=== PATIENT | female | born 1975 | race African-American/Black ===

== ENCOUNTER 2016-07-21 09:42 | Emergency (ER) | payer MEDICAID ==
[~2016-07-21] VITALS: Ht 175.3 cm; Wt 75.0 kg
[~2016-07-21 09:42] MED LIST: CARV3.125 PO; LISI-363 PO
[2016-07-21 09:45] VITALS: BP 150/107; PULSE 90; RESP 20; TEMP 98.2; O2SAT 99
[2016-07-21] MEDS ORDERED: NAPR500 PO (10:30)
[2016-07-21] MEDS ORDERED: CLON0.1T PO (10:30)
[2016-07-21] MEDS ORDERED: METH2.5T PO (10:30)
[2016-07-21] MEDS ORDERED: LISI-515 PO (10:30)
[2016-07-21] MEDS ORDERED: DULO20 PO (10:30)
[2016-07-21] MEDS ORDERED: CARV3.125 PO (10:30)
--- NOTE | 2016-07-21 10:39 | PD ---
HPI Chief Complaint: Pain: Acute or Chronic Time Seen by Provider: 10:12 Travel History International Travel<30 days: No Contact w/Intl Traveler<30days: No Traveled to known affect area: No History of Present Illness HPI 40-year-old woman presents emergent [place] of left breast pain. States that she's had this left breast pain and tender lump ongoing for months. She was seen here and referred as outpatient for further evaluation. States she seen multiple doctors but has not been able to get any further evaluation. States she also has pain in the right breast. States she noticed discharge from the left nipple at some point in the past but states the son actually that uncommon for her. She has a history of multiple medical problems including lupus fibromyalgia rheumatoid arthritis COPD and hypertension. She feels like the pain is worse when she tries to eat something and she hasn't been able to eat because of worsening pain. History Past Medical History Narrative Medical Lupus Fibromyalgia Return arthritis, methotrexate COPD Hypertension Tetanus Vaccination: > 5 Years : 4 Para: 5 Dilation and Curettage (D&C): Yes Social History Alcohol Use: No Tobacco Use: No Allergies-Medications (Allergen,Severity, Reaction): Coded Allergies: Clindamycin (Verified Allergy, Severe, Cardiac Arrest, 07/21/16) Darvocet-N 100 (Verified Allergy, Severe, Itching, 07/21/16) Latex (Verified Allergy, Intermediate, RASH, 07/21/16) Penicillin (Verified Allergy, Intermediate, Anaphylaxis, 07/21/16) Reported Meds & Prescriptions Reported Meds & Active Scripts Active Reported Methotrexate 2.5 Mg Tab 2.5 Mg PO Q7D Naprosyn (Naproxen) 500 Mg Tab 500 Mg PO BID Cymbalta DR (Duloxetine HCl) 20 Mg Capdr 20 Mg PO DAILY Clonidine (Clonidine HCl) 0.1 Mg Tab 0.1 Mg PO BID Lisinopril 20 Mg Tab 20 Mg PO DAILY Coreg (Carvedilol) 3.125 Mg Tab 3.125 Mg PO BID Review of Systems Except as stated in HPI: all other systems reviewed are Neg Physical Exam Narrative GENERAL: 40-year-old woman, well-appearing, no acute distress. SKIN: Warm and dry. HEAD: Atraumatic. Normocephalic. CARDIOVASCULAR: Regular rate and rhythm. No murmur appreciated. RESPIRATORY: No accessory muscle use. Clear to auscultation. Breath sounds equal bilaterally. BREASTS: Normal appearance of both breasts. Pendulous. There is a little bit of firm fibrocystic changes in the base. There is a more discrete palpable lump at the 3 o'clock position the left breast. No abnormal lumps or bumps in the right breast. No discharge. No erythema redness or fluctuance changes. GASTROINTESTINAL: Abdomen soft, non-tender, nondistended. Hepatic and splenic margins not palpable. MUSCULOSKELETAL: No obvious deformities. No clubbing. No cyanosis. No edema. NEUROLOGICAL: Awake and alert. No obvious cranial nerve deficits. Motor grossly within normal limits. Normal speech. PSYCHIATRIC: Appropriate mood and affect; insight and judgment normal. Data Data Last Documented VS Vital Signs Date Time Temp Pulse Resp B/P Pulse Ox O2 Delivery O2 Flow Rate FiO2 07/21/16 09:45 98.2 90 20 150/107 99 Room Air MDM Medical Decision Making Medical Screen Exam Complete: Yes Emergency Medical Condition: Yes Differential Diagnosis Breast masses, fibrocystic changes breaths, fibromyalgia, chronic pain, other Narrative Course Medical decision-making 40-year-old woman with multiple milligrams here with several months worth of pain and tenderness in the lump in the left breast. Chest wall. Does not appear dehydrated. Does not appear emaciated. She has a primary care physician. She is having some trouble ranging except and follow-up with his left breast lump. We'll refer her to our breast navigator. Diagnosis Primary Impression: Left breast mass Additional Instructions: Follow-up with your primary physician at the first available appointment. Follow-up with our breast navigator to assist you with further evaluation of this left breast mass. Return to the emergency department for any new or worsening symptoms. Med/Other Pt SpecificInfo: No Change to Meds Disposition: 01 DISCHARGE HOME Condition: Stable Michael Giron MD Jul 21, 2016 10:39
[2016-08-08] MEDS ORDERED: AMIT10TA6 PO (10:11)
[2016-08-08] MEDS ORDERED: SPIRCAP INH (10:11)
[2016-08-08] MEDS ORDERED: MONT10TA2 PO (10:11)
[2016-08-08] MEDS ORDERED: SYMB80AE INH (10:11)
[2016-08-08] MEDS ORDERED: CYMB30CA PO (10:11)
[2016-08-08] MEDS ORDERED: CYMB60CA PO (10:11)
[2016-08-08] MEDS ORDERED: VENTAER INH (10:12)
[2016-08-10] MEDS ORDERED: SPIRCAP INH (16:08)
[2016-08-10] MEDS ORDERED: VENTAER INH (16:08)
[2016-08-10] MEDS ORDERED: CARV12.52 PO (16:08)
[2016-08-10] MEDS ORDERED: SYMB80AE INH (16:08)
[2016-08-10] MEDS ORDERED: LISI-515 PO (16:08)
[2016-08-10] MEDS ORDERED: AMIT10TA6 PO (16:08)
[2016-08-10] MEDS ORDERED: CYMB60CA PO (16:08)
[2016-09-05] MEDS ORDERED: CARV25TA PO (13:27)
[2016-09-24] MEDS ORDERED: CLON0.1T PO (08:48)
[2016-09-28] MEDS ORDERED: CYMB60CA PO (09:51)
[2016-09-28] MEDS ORDERED: CARV25TA PO (09:51)
[2016-09-28] MEDS ORDERED: LISI-515 PO (09:51)
== END 2016-07-21 10:58 | disposition home or self-care (01) ==
LOC: NEPE 09:42
DX: N63 Unspecified lump in breast (principal); M79.7 Fibromyalgia; M06.9 Rheumatoid arthritis, unspecified; J44.9 Chronic obstructive pulmonary disease, unspecified; I10 Essential (primary) hypertension
CPT/HCPCS: 99283

== ENCOUNTER 2017-11-26 07:51 | Emergency (ER) | payer MEDICAID ==
[~2017-11-26] VITALS: Ht 175.3 cm; Wt 60.0 kg
[~2017-11-26 07:51] MED LIST changes: +AMIT10TA6 PO; +CARV25TA PO; -CARV3.125 PO; +CLON0.1T PO; +CYMB30CA PO; +CYMB60CA PO; -LISI-363 PO; +LISI-515 PO; +METH2.5T PO; +MONT10TA2 PO; +NAPR500 PO; +SPIRCAP INH; +SYMB80AE INH; +VENTAER INH
[2017-11-26 08:02] VITALS: BP 137/77; PULSE 96; RESP 18; TEMP 98.7; O2SAT 98
[2017-11-26 08:10] VITALS: BP 183/106; PULSE 71; RESP 16; O2SAT 100
[2017-11-26] MEDS ORDERED: PRED5TAB PO (08:16)
[2017-11-26] MEDS ORDERED: ALBUAER3 INH (08:16)
[2017-11-26] MEDS ORDERED: amLODIPine BESYLATE 5 MG TAB PO ONE (08:30)
[2017-11-26] MEDS ORDERED: SODIUM CHLORIDE 0.9% FLUSH 10 ML FLUSH IVF PRN (08:30)
[2017-11-26 09:01] LABS: AUTOMATED NEUTROPHIL # 5.2 TH/MM3 (1.8-7.7); BASOPHIL # 0.1 TH/MM3 (0-0.2); BASOPHIL % 0.9 % (0.0-2.0); EOSINOPHIL # 0.1 TH/MM3 (0-0.4); EOSINOPHIL % 0.8 % (0.0-4.0); HEMATOCRIT 33.4 % (35.0-46.0); HEMOGLOBIN 11.4 GM/DL (11.6-15.3); LYMPH % 24.9 % (9.0-44.0); LYMPHOCYTE # 1.9 TH/MM3 (1.0-4.8); MEAN CELL VOLUME 89.9 FL (80.0-100.0); MEAN CORPUSCULAR HEMOGLOBIN 30.6 PG (27.0-34.0); MEAN PLATELET VOLUME 7.3 FL (7.0-11.0); MONO % 6.3 % (0.0-8.0); MONOCYTE # 0.5 TH/MM3 (0-0.9); NEUT % 67.1 % (16.0-70.0); PLATELET COUNT 256 TH/MM3 (150-450); RED BLOOD COUNT 3.72 MIL/MM3 (4.00-5.30); RED CELL DISTRIBUTION WIDTH 13.4 % (11.6-17.2); WHITE BLOOD COUNT 7.7 TH/MM3 (4.0-11.0)
--- NOTE | 2017-11-26 09:12 | RADRPT ---
EXAM DATE: 11/26/2017 9:02 AM EDT AGE/SEX: 42 years / Female INDICATIONS: Hypertension, no headache CLINICAL DATA: This is the patient's initial encounter. Patient reports that signs and symptoms have been present for 1 day and indicates a pain score of 0/10. MEDICAL/SURGICAL HISTORY: Hypertension. Lupus. Umbilical hernia repair. RADIATION DOSE: 56.35 CTDI (mGy) COMPARISON: No prior [place] exams available for comparison. TECHNIQUE: CT of the head without contrast. Using automated exposure control and adjustment of the mA and/or kV according to patient size, radiation dose was kept as low as reasonably achievable to ob tain optimal diagnostic quality images. FINDINGS: Cerebrum: The ventricles are normal. No midline shift, mass lesion, hemorrhage or acute infarction. No extraaxial fluid collections are seen. Posterior Fossa: The cerebellum and brainstem demonstrate no acute abnormality. The 4th ventricle is midline. The cerebellopontine angle is within normal limits. Extracranial: The visualized sinuses are clear. Skull: The calvaria is intact. No skull fracture. CONCLUSION: 1. No acute intracranial abnormality is identified. Electronically signed by: Ernesto Bernard MD 11/26/2017 9:11 AM EDT
[2017-11-26 09:27] LABS: ALBUMIN 3.4 GM/DL (3.4-5.0); AST (GOT) 13 U/L (15-37); BICARBONATE 27.5 MEQ/L (21.0-32.0); BLOOD UREA NITROGEN 9 MG/DL (7-18); CALCIUM 8.6 MG/DL (8.5-10.1); CHLORIDE 106 MEQ/L (98-107); GLOMERULAR FILTRATION RATE 132 ML/MIN (>89); GLUCOSE,RANDOM 81 MG/DL (74-106); SODIUM (NA) 141 MEQ/L (136-145)
[2017-11-26 09:29] LABS: ALT (GPT) 20 U/L (10-53)
[2017-11-26 09:32] LABS: ALKALINE PHOSPHATASE 48 U/L (45-117); TOTAL BILIRUBIN ADULT 0.7 MG/DL (0.2-1.0); TOTAL PROTEIN 6.7 GM/DL (6.4-8.2); TROPONIN I LESS THAN 0.02 NG/ML (0.02-0.05)
--- NOTE | 2017-11-26 09:36 | PD ---
HPI Chief Complaint: Hypertension Time Seen by Provider: 08:15 Travel History International Travel<30 days: No Contact w/Intl Traveler<30days: No Traveled to known affect area: No History of Present Illness HPI Is a 41-year-old woman presents emerged from complaining of facelift twitching and tingling starting yesterday. She is a history of lupus. She has had trouble with facial palsies in the past related to the lupus but this is been some time ago. No history of stroke. She is on methotrexate and prednisone. She states she was worried because she is a family history of stroke and heart disease, and her blood pressures been elevated in the 200 / 100 area. She is on Coreg and lisinopril. She was on clonidine in the past but she has not been on it recently. She otherwise is felt generally well. She has had some intermittent chest pain which she states is very common for her and unchanged from baseline. No other recent illness or injury. No other complaints. History Past Medical History Narrative Medical Lupus Hypertension Tetanus Vaccination: > 5 Years Influenza Vaccination: Yes LMP: 11/19/17 : 4 Para: 5 Dilation and Curettage (D&C): Yes Social History Alcohol Use: No Tobacco Use: No Allergies-Medications (Allergen,Severity, Reaction): Coded Allergies: acetaminophen (Verified Allergy, Severe, Itching, 11/26/17) clindamycin (Verified Allergy, Severe, Cardiac Arrest, 11/26/17) propoxyphene (Verified Allergy, Severe, Itching, 11/26/17) latex (Verified Allergy, Intermediate, RASH, 11/26/17) penicillin G (Verified Allergy, Intermediate, Anaphylaxis, 11/26/17) Reported Meds & Prescriptions Reported Meds & Active Scripts Active Carvedilol 25 Mg Tab 25 Mg PO BID Lisinopril 20 Mg Tab 20 Mg PO DAILY Clonidine (Clonidine HCl) 0.1 Mg Tab 0.1 Mg PO BID Symbicort Inh (Budesonide/Formoterol Fumarate) 80-4.5 Mcg/Act Aero 2 Puff INH Q12HR Spiriva Handihaler (Tiotropium Inh) 18 Mcg Cap 18 Mcg INH DAILY 1 capsule = 18 mcg Reported Prednisone 5 Mg Tab 5 Mg PO DAILY Proair Hfa 8.5 GM Inh (Albuterol Sulfate) 90 Mcg/Act Aer 1 Puff INH Q4H PRN 108 mcg/actuation Cymbalta DR (Duloxetine HCl) 30 Mg Capdr 30 Mg PO DAILY Methotrexate 2.5 Mg Tab 2.5 Mg PO Q7D Review of Systems Except as stated in HPI: all other systems reviewed are Neg Physical Exam Narrative GENERAL: Well-appearing 42-year-old woman, no acute distress. SKIN: Focused skin assessment warm/dry. HEAD: Atraumatic. Normocephalic. EYES: Pupils equal and round. No scleral icterus. No injection or drainage. ENT: No nasal bleeding or discharge. Mucous membranes pink and moist. NECK: Trachea midline. No JVD. CARDIOVASCULAR: Regular rate and rhythm. No murmur appreciated. RESPIRATORY: No accessory muscle use. Clear to auscultation. Breath sounds equal bilaterally. GASTROINTESTINAL: Abdomen soft, non-tender, nondistended. Hepatic and splenic margins not palpable. MUSCULOSKELETAL: No obvious deformities. No clubbing. No cyanosis. No edema. NEUROLOGICAL: Awake and alert. Cranial nerves II through XII are intact. Strength full and equal upper and lower extremity's. Normal speech. Normal heel to rodrigues. Normal finger to nose. She describes some subjective sensory changes in the left arm. No other complaints. PSYCHIATRIC: Appropriate mood and affect; insight and judgment normal. Data Data Last Documented VS Vital Signs Date Time Temp Pulse Resp B/P (MAP) Pulse Ox O2 Delivery O2 Flow Rate FiO2 11/26/17 08:10 71 16 183/106 (131) 100 Room Air 11/26/17 08:02 98.7 Orders Orders Electrocardiogram (11/26/17 ) Electrocardiogram (11/26/17 08:27) Complete Blood Count With Diff (11/26/17 08:27) Comprehensive Metabolic Panel (11/26/17 08:27) D-Dimer (11/26/17 08:27) Magnesium (Mg) (11/26/17 08:27) Troponin I (11/26/17 08:27) Iv Access Insert/Monitor (11/26/17 08:27) Sodium Chloride 0.9% Flush (Ns Flush) (11/26/17 08:30) Chest, Pa & Lat (11/26/17 08:27) Ct Brain W/O Iv Contrast(Rout) (11/26/17 ) Amlodipine (Norvasc) (11/26/17 08:30) Labs Laboratory Tests Test 11/26/17 08:30 White Blood Count 7.7 TH/MM3 Red Blood Count 3.72 MIL/MM3 Hemoglobin 11.4 GM/DL Hematocrit 33.4 % Mean Corpuscular Volume 89.9 FL Mean Corpuscular Hemoglobin 30.6 PG Mean Corpuscular Hemoglobin Concent 34.0 % Red Cell Distribution Width 13.4 % Platelet Count 256 TH/MM3 Mean Platelet Volume 7.3 FL Neutrophils (%) (Auto) 67.1 % Lymphocytes (%) (Auto) 24.9 % Monocytes (%) (Auto) 6.3 % Eosinophils (%) (Auto) 0.8 % Basophils (%) (Auto) 0.9 % Neutrophils # (Auto) 5.2 TH/MM3 Lymphocytes # (Auto) 1.9 TH/MM3 Monocytes # (Auto) 0.5 TH/MM3 Eosinophils # (Auto) 0.1 TH/MM3 Basophils # (Auto) 0.1 TH/MM3 CBC Comment DIFF FINAL Differential Comment D-Dimer Quantitative (PE/DVT) 0.43 MG/L FEU Blood Urea Nitrogen 9 MG/DL Creatinine 0.60 MG/DL Random Glucose 81 MG/DL Total Protein 6.7 GM/DL Albumin 3.4 GM/DL Calcium Level 8.6 MG/DL Magnesium Level 2.0 MG/DL Alkaline Phosphatase 48 U/L Aspartate Amino Transf (AST/SGOT) 13 U/L Alanine Aminotransferase (ALT/SGPT) 20 U/L Total Bilirubin 0.7 MG/DL Sodium Level 141 MEQ/L Potassium Level 3.3 MEQ/L Chloride Level 106 MEQ/L Carbon Dioxide Level 27.5 MEQ/L Anion Gap 8 MEQ/L Estimat Glomerular Filtration Rate 132 ML/MIN Troponin I LESS THAN 0.02 NG/ML [facility] Medical Decision Making Medical Screen Exam Complete: Yes Emergency Medical Condition: Yes Interpretation(s) My review of EKG: Normal sinus rhythm at a rate of 72, normal axis, normal intervals, no acute ischemia. LABS: CBC is remarkable for mild anemia. CMP is unremarkable. Troponin negative. D-dimer 0.[address] negative Chest x-ray negative Differential Diagnosis Facial spasms, electrolyte abnormality, seizure, CVA, stroke, other Narrative Course Medical decision making Is a 42-year-old woman who presents to the emergency department with facial twitching elevated blood pressure. Positive symptoms with facial twitching very unlikely to represent stroke. She looks well. Will check labs. Will recommend tighter control blood pressure. Will restart amlodipine. Likely discharge for outpatient follow-up. Diagnosis Primary Impression: Facial twitching Additional Impression: Elevated blood pressure reading Additional Instructions: Start amlodipine as prescribed. Follow-up with your primary doctor in the next 1-2 days. Return to the emergency part for any worsening numbness tingling weakness or any other new or worsening symptoms. Med/Other Pt SpecificInfo: Prescription(s) given Scripts Amlodipine (Amlodipine) 5 Mg Tab 5 MG PO DAILY for Blood Pressure Management, #30 TAB 0 Refills Prov: Michael Giron MD 11/26/17 Disposition: DISCHARGE HOME Condition: Stable Michael Giron MD November 26, 2017 09:36
--- NOTE | 2017-11-26 10:04 | RADRPT ---
EXAM DATE: 11/26/2017 9:47 AM EDT AGE/SEX: 42 years / Female INDICATIONS: Chest tightness and short of breath. CLINICAL DATA: This is the patient's initial encounter. Patient reports that signs and symptoms have been present for 1 day and indicates a pain score of 0/10. MEDICAL/SURGICAL HISTORY: Hypertension. Chronic obstructive pulmonary disease. Lupus. A-fib. Fibromyalgia. Rheumatoid arthritis. Lyme's disease. section. Cholecystectomy. D&C. Bilate ral feet. COMPARISON: No prior [place] exams available for comparison. FINDINGS: PA and lateral views of the chest demonstrate the lungs to be symmetrically aerated without evidence of mass, infiltrate or effusion. The cardiomediastinal contours are unremarkable. Osseous structures are intact. CONCLUSION: 1. No acute cardiopulmonary disease. Electronically signed by: Wayne Felipe MD 11/26/2017 10:03 AM EDT
[2017-11-26] MEDS ORDERED: AMLO5TAB2 PO (10:19)
[2017-11-26 10:23] VITALS: BP 148/87
[2017-11-26] MEDS ORDERED: LISI-515 PO (10:24)
[2017-11-26] MEDS ORDERED: CARV25TA PO (10:24)
--- NOTE | 2017-11-26 13:59 | EKG ---
Date Performed: 11/26/2017 Time Performed: 08:28:17 PTAGE: 42 years EKG: Sinus rhythm WITH SINUS ARRHYTHMIA NORMAL ECG NO PREVIOUS TRACING DOCTOR: Joaquín Stephens Interpretating Date/Time 11/29/2017 07:47:33
== END 2017-11-26 10:38 | disposition home or self-care (01) ==
LOC: NEPC 07:51
DX: R25.3 Fasciculation (principal); I10 Essential (primary) hypertension; M32.9 Systemic lupus erythematosus, unspecified; R07.89 Other chest pain
CPT/HCPCS: 70450; 71046; 80053; 83735; 84484; 85025; 85379; 93005

== ENCOUNTER 2018-01-01 16:32 | Observation (INO) ==
--- NOTE | 2018-01-01 16:50 | ED ---
HPI General Chief Complaint: Seizure Stated Complaint: Seizures/Evac Time Seen by Provider: 01/01/18 16:44 History of Present Illness HPI Narrative: Patient has a history of lupus and fibromyalgia presents complaining of seizure. States that her 2 children have seizures. Patient was at a [facility] and had a witnessed grand mal seizure, tonic-clonic seizure, per EMS bystanders stated that she was seizing for approximately 15 minutes. There was no history of fall or incontinence. Per EMS Accu-Chek and 12-lead were within normal limits. Patient states that she has a history of "passing out a lot." When EMSs arrival she was postictal. Patient states that she may have had a history of seizures last seizure being in 1995. Leave that he induces the symptoms. Frontal headache, an episode of nausea vomiting but could not determine if she vomited before the reported seizure. She denies fever, chills , shortness of breath, but reports chest pain described as sternal/constant/ nonradiating/5 minutes duration/no pain now. She is also reporting numbness and tingling in her fingers and her toes. Last menstrual period is now. She's s /p tubal ligation. Related Data Home Medications Medication Instructions Recorded Confirmed albuterol sulfate [ProAir HFA] 1 puff INHALATION Q4-6H PRN 01/01/18 01/01/18 budesonide-formoterol [Symbicort] 2 puff INHALATION BID 01/01/18 01/01/18 carvedilol 25 mg PO BID 01/01/18 01/01/18 duloxetine [Cymbalta] 30 mg PO DAILY 01/01/18 01/01/18 lisinopril 20 mg PO DAILY 01/01/18 01/01/18 methotrexate sodium See Label Instructions .ROUTE 01/01/18 01/01/18 .COMPLEX prednisone 5 mg PO DAILY 01/01/18 01/01/18 prednisone PO DAILY 01/01/18 01/01/18 tiotropium bromide [Spiriva with 1 cap INHALATION DAILY 01/01/18 01/01/18 HandiHaler] Allergies Allergy/AdvReac Type Severity Reaction Status Date / Time acetaminophen Allergy Severe Itching Verified 12/26/17 08:48 clindamycin Allergy Severe Cardiac Verified 12/26/17 08:48 Arrest propoxyphene Allergy Severe Itching Verified 12/26/17 08:48 latex Allergy Intermediate RASH Verified 12/26/17 08:48 penicillin G Allergy Intermediate Anaphylaxis Verified 12/26/17 08:48 Review of Systems ROS Unobtainable All other systems reviewed negative except as stated in HPI [facility] Medical History Medical History Hypertension (Acute) Hypertension (Acute) Social History Social History Second Hand Smoke Exposure: No Smoking Status: Current some day smoker Tobacco Type: Cigars How Often Do You Have a Drink Containing Alcohol: Monthly or less Recent Travel in [facility] within the Last 8 Weeks: No Recent Out of Country Travel within the Last 8 Weeks: No Exam Narrative Exam Narrative: GENERAL: No acute distress. SKIN: Focused skin assessment warm/dry. HEAD: Atraumatic. Normocephalic. EYES: Pupils equal and round. No scleral icterus. No injection or drainage. ENT: No nasal bleeding or discharge. Mucous membranes pink and moist. NECK: Trachea midline. No JVD. CARDIOVASCULAR: Regular rate and rhythm. No murmur appreciated. RESPIRATORY: No accessory muscle use. Clear to auscultation. Breath sounds equal bilaterally. GASTROINTESTINAL: Abdomen soft, non-tender, nondistended. Hepatic and splenic margins not palpable. MUSCULOSKELETAL: No obvious deformities. No clubbing. No cyanosis. No edema. NEUROLOGICAL: Awake and alert. No obvious cranial nerve deficits. Bilateral upper extremity 3/5. Normal speech. PSYCHIATRIC: Appropriate mood and affect; insight and judgment normal. Course Initial Documented Vital Signs Temperature 97.4 F L 01/01/18 16:44 Pulse Rate 74 01/01/18 16:44 Respiratory Rate 18 01/01/18 16:44 Blood Pressure 128/89 01/01/18 16:44 Pulse Oximetry 100 01/01/18 16:44 Last Documented Vital Signs Temperature 97.4 F L 01/01/18 17:21 Pulse Rate 74 01/01/18 17:21 Respiratory Rate 18 01/01/18 17:21 Blood Pressure 128/89 01/01/18 17:21 Pulse Oximetry 100 01/01/18 17:21 Medical Decision Making MDM Narrative Medical decision making narrative: Patient presents to the emergency department secondary to seizure activity. Patient placed on a insulator apprentice, continuous pulse ox, and IV access obtained. Head CT/EKG/labs/chest x-ray ordered. 1L IV NS ordered. Head CT: CONCLUSION:1. No acute intracranial abnormalities. No significant change from November 26. Retention cyst right maxillary sinus. CXR: CONCLUSION: No focal consolidation or effusion. Heart size within normal limits. Labs: Decreased hemoglobin and hematocrit, slight increase in creatinine. UA, UDS, UPT pending at time of admit, admit MD to follow. 1849: Spoke to Dr. Mancia, neuro mortuary operations manager. Advised admit to obs, place neuro consult, MRI brain w/wo, drug screen, EEG, keppra 500mg po BID. Ordered keppra, neuro consult, and UDS in ER. Admit MD to place other orders. 1955: Admitted to Observation. Differential Diagnosis Differential Diagnosis: Seizure, TIA, CVA, intracranial mass, lupus Lab Data Result diagrams: 01/01/18 15:15 01/01/18 15:15 Lab Results 01/01/18 01/01/18 01/01/18 Range/Units 15:15 15:15 15:15 WBC 8.9 (4.0-11.0) th/mm3 RBC 3.54 L (4.00-5.30) mil/mm3 Hgb 10.7 L (11.6-15.3) gm/dL Hct 32.0 L (35.0-46.0) % MCV 90.4 (80.0-100.0) fL MCH 30.3 (27.0-34.0) pg MCHC 33.5 (32.0-36.0) % RDW 14.7 (11.6-17.2) % Plt Count 240 (150-450) th/mm3 MPV 8.5 (7.0-11.0) fL Neut % (Auto) 57.5 (16.0-70.0) % Lymph % (Auto) 32.5 (9.0-44.0) % [place] % (Auto) 7.5 (0.0-8.0) % Eos % (Auto) 1.4 (0.0-4.0) % Baso % (Auto) 1.1 (0.0-2.0) % Neut # (Auto) 5.1 (1.8-7.7) th/mm3 Lymph # (Auto) 2.9 (1.0-4.8) th/mm3 [place] # (Auto) 0.7 (0.0-0.9) th/mm3 Eos # (Auto) 0.1 (0.0-0.4) th/mm3 Baso # (Auto) 0.1 (0.0-0.2) th/mm3 WBC Differential . Differential Comment Auto diff final Sodium 143 (136-145) meq/L Potassium 4.4 (3.5-5.1) meq/L Chloride 109 H (98-107) meq/L Carbon Dioxide 22.6 (21.0-32.0) meq/L Anion Gap 11 (5-15) meq/L BUN 12 (7-18) mg/dL Creatinine 1.10 H (0.50-1.00) mg/dL Estimated GFR 66 L (>89) mL/min Random Glucose 73 L (74-106) mg/dL Calcium 8.9 (8.5-10.1) mg/dL Magnesium 2.5 (1.5-2.5) mg/dL Total Bilirubin 0.6 (0.2-1.0) mg/dL AST 34 (15-37) U/L ALT 43 (10-53) U/L Alkaline Phosphatase 50 (45-117) U/L Total Creatine Kinase (26-192) U/L CK-MB (CK-2) (0.5-3.6) ng/mL Troponin I (0.02-0.05) ng/mL Total Protein 7.0 (6.4-8.2) g/dL Albumin 3.5 (3.4-5.0) g/dL 01/01/18 Range/Units 15:15 WBC (4.0-11.0) th/mm3 RBC (4.00-5.30) mil/mm3 Hgb (11.6-15.3) gm/dL Hct (35.0-46.0) % MCV (80.0-100.0) fL MCH (27.0-34.0) pg MCHC (32.0-36.0) % RDW (11.6-17.2) % Plt Count (150-450) th/mm3 MPV (7.0-11.0) fL Neut % (Auto) (16.0-70.0) % Lymph % (Auto) (9.0-44.0) % [place] % (Auto) (0.0-8.0) % Eos % (Auto) (0.0-4.0) % Baso % (Auto) (0.0-2.0) % Neut # (Auto) (1.8-7.7) th/mm3 Lymph # (Auto) (1.0-4.8) th/mm3 [place] # (Auto) (0.0-0.9) th/mm3 Eos # (Auto) (0.0-0.4) th/mm3 Baso # (Auto) (0.0-0.2) th/mm3 WBC Differential Differential Comment Sodium (136-145) meq/L Potassium (3.5-5.1) meq/L Chloride (98-107) meq/L Carbon Dioxide (21.0-32.0) meq/L Anion Gap (5-15) meq/L BUN (7-18) mg/dL Creatinine (0.50-1.00) mg/dL Estimated GFR (>89) mL/min Random Glucose (74-106) mg/dL Calcium (8.5-10.1) mg/dL Magnesium (1.5-2.5) mg/dL Total Bilirubin (0.2-1.0) mg/dL AST (15-37) U/L ALT (10-53) U/L Alkaline Phosphatase (45-117) U/L Total Creatine Kinase 112 (26-192) U/L CK-MB (CK-2) Less than 0.5 L (0.5-3.6) ng/mL Troponin I Less than 0.02 L (0.02-0.05) ng/mL Total Protein (6.4-8.2) g/dL Albumin (3.4-5.0) g/dL Imaging Data Radiologist's impression: ITS Impressions Head CT 01/01/18 16:44 CONCLUSION: 1. No acute intracranial abnormalities. No significant change from November 26. Retention cyst right maxillary sinus. Chest X-Ray 01/01/18 16:47 CONCLUSION: No focal consolidation or effusion. Heart size within normal limits. Discharge Plan Discharge Disposition Patient Disposition: 30 Still Patient Discharge Condition Condition: Stable Discharge Details Discharge Problem: Seizures Physicians Team ED Provider: Dominga Shankar Primary Care Provider: Primary Care Cecei,Chica Attending Provider: Wagner Martin Other Providers: Brett Castellanos Status ED Status: Admitted Observation Patient
--- NOTE | 2018-01-01 17:11 | XR ---
EXAM DATE: 01/01/2018 5:08 PM EDT AGE/SEX: 42 years / Female INDICATIONS: Syncope, seizures. CLINICAL DATA: This is the patient's initial encounter. Patient reports that signs and symptoms have been present for 1 day and indicates a pain score of 0/10. MEDICAL/SURGICAL HISTORY: Hypertension. Chronic obstructive pulmonary disease. Lupus. A-fib. Fi bromyalgia. Rheumatoid arthritis. Lyme' s disease. . section. Cholecystectomy. D&C. Bilate ral feet. COMPARISON: [facility] [place], CHEST PA & LAT, 11/26/2017. . FINDINGS: A single AP view of the chest demonstrates the lungs to be symmetrically aerated without evidence of mass, infiltrate or effusion. The cardiomediastinal contours are unremarkable. Osseous structures a re intact. CONCLUSION: No focal consolidation or effusion. Heart size within normal limits. Electronically signed by: Saroj Chung MD 01/01/2018 5:10 PM EDT
[2018-01-01 17:53] LABS: Baso # (Auto) 0.1 th/mm3 (0.0-0.2); Baso % (Auto) 1.1 % (0.0-2.0); Eos # (Auto) 0.1 th/mm3 (0.0-0.4); Eos % (Auto) 1.4 % (0.0-4.0); Hemoglobin 10.7 gm/dL (11.6-15.3); Lymph # (Auto) 2.9 th/mm3 (1.0-4.8); Lymph % (Auto) 32.5 % (9.0-44.0); Mean Corpuscular HGB Conc 33.5 % (32.0-36.0); Mean Corpuscular Hemoglobin 30.3 pg (27.0-34.0); Mean Corpuscular Volume 90.4 fL (80.0-100.0); Mean Platelet Volume 8.5 fL (7.0-11.0); Mono # (Auto) 0.7 th/mm3 (0.0-0.9); Mono % (Auto) 7.5 % (0.0-8.0); Neut # (Auto) 5.1 th/mm3 (1.8-7.7); Neut % (Auto) 57.5 % (16.0-70.0); Platelet Count 240 th/mm3 (150-450); Red Blood Count 3.54 mil/mm3 (4.00-5.30); Red Cell Distribution Width 14.7 % (11.6-17.2); White Blood Count 8.9 th/mm3 (4.0-11.0)
[2018-01-01] MEDS ORDERED: Sod Chloride 0.9% Inj 1,000 ML IV.SIG ONE (18:11)
[2018-01-01 18:26] LABS: Alanine Aminotransferase 43 U/L (10-53)
[2018-01-01 18:29] LABS: Alkaline Phosphatase 50 U/L (45-117)
[2018-01-01 18:44] LABS: Albumin 3.5 g/dL (3.4-5.0); Anion Gap 11 meq/L (5-15); Aspartate Aminotransferase 34 U/L (15-37); Blood Urea Nitrogen 12 mg/dL (7-18); Calcium 8.9 mg/dL (8.5-10.1); Carbon Dioxide 22.6 meq/L (21.0-32.0); Chloride 109 meq/L (98-107); Glomerular Filtration Rate 66 mL/min (>89); Glucose,Random 73 mg/dL (74-106); Sodium 143 meq/L (136-145)
[2018-01-01 18:52] LABS: Creatine Kinase 112 U/L (26-192)
[2018-01-01 18:53] LABS: Potassium 4.4 meq/L (3.5-5.1)
[2018-01-01] MEDS ORDERED: levETIRAcetam 500 MG Tablet PO ONE (19:01)
[2018-01-01] MEDS ORDERED: Gadodiamide PF Inj 287 MG/ML 5 ML Syringe (for RAD MRI) IVCONTRAST ONE (19:56)
[2018-01-01] MEDS: Sod Chloride 0.9% Inj 1,000 ML IV.CONT SCH (20:30)
--- NOTE | 2018-01-01 21:49 | MR ---
EXAM DATE: 01/01/2018 9:38 PM EDT AGE/SEX: 42 years / Female INDICATIONS: Epilepsy. CLINICAL DATA: This is the patient's initial encounter. Patient reports that signs and symptoms have been present for 1 day and indicates a pain score of 4/10. MEDICAL/SURGICAL HISTORY: Lupus. Chronic obstructive pulmonary disease. Seizure, HBP. Cholecy stectomy. Rt foot sx, COMPARISON: No prior exams available for comparison. TECHNIQUE: Multiplanar, multisequence examination of the brain was performed without and with 12 ml O mniscan (gadodiamide) contrast as a single exam dose. FINDINGS: No intracranial mass, hemorrhage or shift. No hydrocephalus. No abnormal extra-axial fluid collection s are present. No recent infarction identified. Retention cyst right maxillary sinus. Mucosal thicken ing and fluid in the mastoid air cells, left greater than right. CONCLUSION: 1. No acute findings. No recent infarct. Mastoid air cell disease, left greater than right. Retentio n cyst right maxillary sinus. Electronically signed by: Saroj Chung MD 01/01/2018 9:48 PM EDT
[2018-01-01 22:02] LABS: Amphetamine Screen,Urine Neg (Neg); Barbiturate Screen,Urine Neg (Neg); Cannabinoid Screen,Urine Pos (Neg); Cocaine Screen,Urine Neg (Neg); Opiate Screen,Urine Neg (Neg)
[2018-01-01 22:03] LABS: Bacteria,Urine Occasional /hpf; Bilirubin,Urine Negative (Negative); Clarity,Urine Hazy (Clear); Color,Urine Yellow (Yellw/Straw); Glucose,Urine (UA) Negative (Negative); Hyaline Casts,Urine 17 /lpf (0-3); Leukocyte Esterase,Urine Moderate (Negative); Mucus,Urine Many /lpf (Occasional); Nitrite,Urine Negative (Negative); Specific Gravity,Urine 1.027 (1.002-1.035); Squamous Epithelial Cell,Urine 2 /hpf (0-5)
[2018-01-02] MEDS: levETIRAcetam 500 MG Tablet PO SCH ×2 (08:19→20:57)
[2018-01-02] MEDS: Sod Chloride 0.9% Inj 1,000 ML IV.CONT SCH ×2 (08:20→21:45)
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
[2018-01-02] MEDS ORDERED: Gadodiamide PF Inj 287 MG/ML 20 ML Syringe (for RAD MRI) IVCONTRAST ONE (12:59)
--- NOTE | 2018-01-02 13:17 | MR ---
EXAM DATE: 01/02/2018 1:12 PM EDT AGE/SEX: 42 years / Female INDICATIONS: Dizziness. CLINICAL DATA: This is the patient's subsequent encounter. Patient reports that signs and symptoms h ave been present for 2 days and indicates a pain score of 0/10. MEDICAL/SURGICAL HISTORY: Lupus. Hypertension. COPD section. Cholecystectomy. COMPARISON: No prior exams available for comparison. TECHNIQUE: 20 ml Omniscan (gadodiamide) contrast infused MRA (single exam dose) of the extracranial circulation was performed using a neurovascular coil. Postprocessing was performed, including rotat ing sub-volume maximum intensity projections of each carotid artery, rotating full-volume maximum int ensity projections of both carotid arteries, sagittal and coronal sliding thin-slab reformations of e ach carotid artery, and left oblique sliding thin-slab reformation through the aortic arch to include the origin of the arch branch vessels. FINDINGS: Aortic Arch : There is a two-vessel origin of the great vessels from the aorta. The left common car otid artery and innominate arteries have a common trunk. No evidence of ostial narrowing. Right Carotid : The common carotid artery is intact. The carotid bulb has a normal configuration wi thout ulceration or narrowing. The internal carotid artery lumen is smooth without stenosis. The ex ternal carotid artery is intact. Left Carotid : The common carotid artery is intact. The carotid bulb has a normal configuration wit hout ulceration or narrowing. The internal carotid artery lumen is smooth without stenosis. The ext ernal carotid artery is intact. Vertebrals : The vertebral arteries have a symmetric diameter. No stenotic lesions are seen. CONCLUSION: Negative MRA Carotids. Percent stenosis is calculated using the diameter of the stenotic region over the diameter of the nor mal distal internal carotid artery Electronically signed by: Darius Torres MD 01/02/2018 1:15 PM EDT
--- NOTE | 2018-01-02 13:18 | MR ---
EXAM DATE: 01/02/2018 1:11 PM EDT AGE/SEX: 42 years / Female INDICATIONS: Dizziness. CLINICAL DATA: This is the patient's subsequent encounter. Patient reports that signs and symptoms h ave been present for 2 days and indicates a pain score of 0/10. MEDICAL/SURGICAL HISTORY: Hypertension. Chronic obstructive pulmonary disease. Lupus. Cesarea n section. Cholecystectomy. foot surgery [place] [facility] [place]. . TECHNIQUE: 3D [id number] MRA was performed. Source images, multiplanar STS MIP, and 3D volum e MIP reconstructions were reviewed. FINDINGS: Anterior Circulation: Intracranial Carotid Arteries: Patent. NIKOLAY: There is no evidence for aneurysm, vessel truncation or stenosis, and no evidence for vascular m alformation. MCA: There is no evidence for aneurysm, vessel truncation or stenosis, and no evidence for vascular m alformation. Posterior Circulation: Distal Vertebral Arteries: Distal Vertebral arteries are symetrical and patent. Basilar Artery: There is no evidence for aneurysm, vessel truncation or stenosis, and no evidence for vascular malformation. [employer] and Cerebellar Branches: There is no evidence for aneurysm, vessel truncation or stenosis, and no evidence for vascular malformation. CONCLUSION: 1. Unremarkable MRA examination of the head. Specifically, no evidence for significant intracranial stenosis or large vessel occlusion. Electronically signed by: Wayne Felipe MD 01/02/2018 1:16 PM EDT
--- NOTE | 2018-01-02 15:27 | MG ---
cc: Ihsan Mckinney MD, PhD DATE OF STUDY: 01/02/2018. TEST NUMBER: [id number]. TECHNIQUE: A 17-channel EEG. DESCRIPTION: The background rhythm is a symmetrical alpha rhythm, frequency is 8-9 Hz. Amplitude is 20 microvolts. There are no lateralizing features, no epileptiform features present. Photic results in a normal driving response. Hyperventilation was done with no change in background rhythm. INTERPRETATION: Normal EEG. Ihsan Mckinney MD, PhD MAGO/TL , 03:18 PM , 03:25 PM
--- NOTE | 2018-01-02 16:46 | P.HP ---
History of Present Illness Primary Care Physician: No Primary Care Physician History of Present Illness: Patient is a 42-year-old female with past medical history of A. fib, lupus, fibromyalgia, RA, hypertension, COPD, lung disease resented to the emergency room with what she thinks was a "grand mal seizure". She states it occurs while she was cooking/grilling out with her friend. It occurred yesterday afternoon and the last thing she remembers was holding the top of the grill where someone was flipping the food and all of a sudden she felt hot and " passed out". She does not remember what happened afterwards. She states that her children have a history of seizures but when she was never diagnosed. She wonders if all those years that she has been passing out could be related to seizures. She saw turkey pinner in [place] about 3 years ago for her similar symptoms had had stress test but she does not know if any of them were positive but she was never told that she needed a cardiac cath. She moved here 3 years ago. Patient tells me that she experiences chest tightness on and off which is chronic for her and she has aches all over due to her fibromyalgia, nothing out of the ordinary for her prior to the syncopal episode, she never had chest pains. She has a history of uncontrolled hypertension and states that here her BP's have been the best that she has ever had. Currently she is chest pain- free. Past medical history of atrial fibrillation, lupus, fibromyalgia, RA, hypertension, COPD, Lyme disease Past surgical history: none family hx: father had an KS at age 39, mother HTN social hx: smokes cigars, smokes MJ Inpatient Certification: I certify that the inpatient services were ordered in accordance with Medicare regulations governing the order. This includes certification that hospital inpatient services are reasonable and necessary and in the case of services not specified as inpatient-only under 42 CFR 419.22(n), that they are appropriately provided as inpatient services in accordance to with the 2-midnight benchmark under 43 CFR 412.3(e) Review of Systems All other systems reviewed negative except as stated in HPI [facility] - History History Provided By: Patient - Medical History Medical History: Medical History (Last Updated 01/01/18 @ 20:38 by Dia Camacho) Hypertension (Acute) Hypertension (Acute) - Tobacco History Second Hand Smoke Exposure: No Tobacco Use In Past 30 Days: Yes Smoking Status: Light tobacco smoker Tobacco Type: Cigars - Alcohol History How Often Do You Have a Drink Containing Alcohol: Monthly or less - Substance Use History Substance History: No History of Abuse - Travel History Recent Travel in the [place] Within the Last 8 Weeks: No Recent Travel Out of the Country Within the Last 8 Weeks: No - Immunization History Tetanus Immunization: <5 Years Hx Influenza Vaccine This Season: Yes Medications and Allergies Active Medications: Active Medications Sodium Chloride (Ns Inj) 1,000 mls @ 75 mls/hr IV.CONT .[id number] [facility] Last Admin: 01/02/18 08:20 Dose: 75 mls/hr Levetiracetam (Keppra) 500 mg PO BID [facility] Last Admin: 01/02/18 08:19 Dose: 500 mg Allergies Allergy/AdvReac Type Severity Reaction Status Date / Time acetaminophen Allergy Severe Itching Verified 12/26/17 08:48 clindamycin Allergy Severe Cardiac Verified 12/26/17 08:48 Arrest propoxyphene Allergy Severe Itching Verified 12/26/17 08:48 latex Allergy Intermediate RASH Verified 12/26/17 08:48 penicillin G Allergy Intermediate Anaphylaxis Verified 12/26/17 08:48 Home Medications Medication Instructions Recorded Confirmed Type albuterol sulfate [ProAir HFA] 1 puff INHALATION Q4-6H PRN 01/01/18 01/01/18 History budesonide-formoterol [Symbicort] 2 puff INHALATION BID 01/01/18 01/01/18 History carvedilol 25 mg PO BID 01/01/18 01/01/18 History duloxetine [Cymbalta] 30 mg PO DAILY 01/01/18 01/01/18 History lisinopril 20 mg PO DAILY 01/01/18 01/01/18 History methotrexate sodium See Label Instructions .ROUTE 01/01/18 01/01/18 History .COMPLEX prednisone 5 PO DAILY 01/01/18 History prednisone 5 mg PO DAILY 01/01/18 01/01/18 History tiotropium bromide [Spiriva with 1 cap INHALATION DAILY 01/01/18 01/01/18 History HandiHaler] Exam Vital signs: Vital Signs 01/01/18 17:21 01/01/18 20:39 01/01/18 22:41 Temperature 97.4 F L 98.2 F 97.5 F L Pulse Rate 74 88 67 Respiratory Rate 18 20 16 Blood Pressure 128/89 132/78 147/85 H Pulse Oximetry 100 100 01/02/18 02:57 01/02/18 07:37 01/02/18 11:24 Temperature 98.1 F 98.5 F 98.9 F Pulse Rate 55 L 66 58 L Respiratory Rate 16 14 14 Blood Pressure 104/61 116/66 119/79 Pulse Oximetry 99 100 100 Intake & Output 01/01/18 01/02/18 01/02/18 18:59 06:59 18:59 Intake Total 1999 Balance 1999 Weight 60.9 kg Intake: IV 1999 NS Inj 1,000 ML @ 75 mls/hr IV. 1000 / 1000 CONT .[id number] [facility] Rx#:[id number] Narrative: GENERAL: walking in her room, appears comfortable. SKIN: Warm and dry. HEAD: Atraumatic. Normocephalic. EYES: EOMI. No scleral icterus. No injection or drainage. ENT: No nasal discharge. Mucous membranes pink and moist. NECK: Trachea midline. CARDIOVASCULAR: Regular rate and rhythm. RESPIRATORY: No accessory muscle use. Clear to auscultation. no wheezing GASTROINTESTINAL: Abdomen soft, non-tender, nondistended. MUSCULOSKELETAL: Extremities without edema. No obvious deformities. NEUROLOGICAL: Awake and alert. No obvious cranial nerve deficits. Motor grossly within normal limits. Normal speech. PSYCHIATRIC: Appropriate mood and affect; insight and judgment normal. Results - Labs CBC & Chem 7: 01/01/18 15:15 01/01/18 15:15 Labs: Laboratory Results - last 24 hr 01/01/18 01/01/18 01/01/18 15:15 15:15 15:15 WBC 8.9 RBC 3.54 L Hgb 10.7 L Hct 32.0 L MCV 90.4 MCH 30.3 MCHC 33.5 RDW 14.7 Plt Count 240 MPV 8.5 Neut % (Auto) 57.5 Lymph % (Auto) 32.5 [place] % (Auto) 7.5 Eos % (Auto) 1.4 Baso % (Auto) 1.1 Neut # (Auto) 5.1 Lymph # (Auto) 2.9 [place] # (Auto) 0.7 Eos # (Auto) 0.1 Baso # (Auto) 0.1 WBC Differential . Differential Comment Auto diff final Sodium 143 Potassium 4.4 Chloride 109 H Carbon Dioxide 22.6 Anion Gap 11 BUN 12 Creatinine 1.10 H Estimated GFR 66 L Random Glucose 73 L Calcium 8.9 Magnesium 2.5 Total Bilirubin 0.6 AST 34 ALT 43 Alkaline Phosphatase 50 Total Creatine Kinase CK-MB (CK-2) Troponin I Total Protein 7.0 Albumin 3.5 Urine Color Urine Clarity Urine pH Ur Specific [place] Urine Protein Urine Glucose (UA) Urine Ketones Urine Occult Blood Urine Nitrate Urine Bilirubin Urine Urobilinogen Ur Leukocyte Esterase Urine RBC Urine WBC Ur Squamous Epith Cells Urine Bacteria Hyaline Casts Urine Mucus Micro UA Comment Urine Culture Comments Urine Opiates Screen Ur Barbiturates Screen Ur Amphetamines Screen U Benzodiazepines Scrn Urine Cocaine Screen U Cannabinoids Screen 01/01/18 01/01/18 01/01/18 15:15 20:50 20:50 WBC RBC Hgb Hct MCV MCH MCHC RDW Plt Count MPV Neut % (Auto) Lymph % (Auto) [place] % (Auto) Eos % (Auto) Baso % (Auto) Neut # (Auto) Lymph # (Auto) [place] # (Auto) Eos # (Auto) Baso # (Auto) WBC Differential Differential Comment Sodium Potassium Chloride Carbon Dioxide Anion Gap BUN Creatinine Estimated GFR Random Glucose Calcium Magnesium Total Bilirubin AST ALT Alkaline Phosphatase Total Creatine Kinase 112 CK-MB (CK-2) Less than 0.5 L Troponin I Less than 0.02 L Total Protein Albumin Urine Color Yellow Urine Clarity Hazy H Urine pH 5.0 Ur Specific [place] 1.027 Urine Protein 30 H Urine Glucose (UA) Negative Urine Ketones Negative Urine Occult Blood Moderate H Urine Nitrate Negative Urine Bilirubin Negative Urine Urobilinogen 2.0 H Ur Leukocyte Esterase Moderate H Urine RBC 7 H Urine WBC 50 H Ur Squamous Epith Cells 2 Urine Bacteria Occasional H Hyaline Casts 17 Urine Mucus Many H Micro UA Comment Culture indicated Urine Culture Comments Culture indicated Urine Opiates Screen Neg Ur Barbiturates Screen Neg Ur Amphetamines Screen Neg U Benzodiazepines Scrn Neg Urine Cocaine Screen Neg U Cannabinoids Screen Pos - Imaging Impressions Head MRI 01/01/18 00:00 CONCLUSION: 1. No acute findings. No recent infarct. Mastoid air cell disease, left greater than right. Retention cyst right maxillary sinus. Head CT 01/01/18 16:44 CONCLUSION: 1. No acute intracranial abnormalities. No significant change from May 29. Retention cyst right maxillary sinus. Chest X-Ray 01/01/18 16:47 CONCLUSION: No focal consolidation or effusion. Heart size within normal limits. Head MRA 01/02/18 00:00 CONCLUSION: 1. Unremarkable MRA examination of the head. Specifically, no evidence for significant intracranial stenosis or large vessel occlusion. Neck MRA 01/02/18 00:00 CONCLUSION: Negative MRA Carotids. Percent stenosis is calculated using the diameter of the stenotic region over the diameter of the normal distal internal carotid artery Caprini VTE Risk Assessment Caprini VTE Risk Assessment: No/Low Risk (score <= 1) Caprini Risk Assessment Model: Point Value = 1 Point Value = 2 Point Value = 3 Point Value = 5 Age 41-60 Minor surgery BMI > 25 kg/m2 Swollen legs Varicose veins or History of unexplained or recurrent spontaneous Oral contraceptives or hormone replacement Sepsis (< 1 month) Serious lung disease, including pneumonia (< 1 month) Abnormal pulmonary function Acute myocardial infarction Congestive heart failure (< 1 month) History of inflammatory bowel disease Medical patient at bed rest Age 61-74 Arthroscopic surgery Major open surgery (> 45 min) Laparoscopic surgery (> 45 min) Malignancy Confined to bed (> 72 hours) Immobilizing plaster cast Central venous access Age >= 75 History of VTE Family history of VTE Factor V Leiden Prothrombin [id number] Lupus anticoagulant Anticardiolipin antibodies Elevated serum homocysteine Heparin-induced thrombocytopenia Other congenital or acquired thrombophilia Stroke (< 1 month) Elective arthroplasty Hip, pelvis, or leg fracture Acute spinal cord injury (< 1 month) Prophylaxis Regimen: Total Risk Factor Score Risk Level Prophylaxis Regimen 0-1 Low Early ambulation 2 Moderate Order ONE of the following: *Sequential Compression Device (SCD) *Heparin 5000 units SQ BID 3-4 Higher Order ONE of the following medications: *Heparin 5000 units SQ TID *Enoxaparin/Lovenox 40 mg SQ daily (WT < 150 kg, CrCl > 30 mL/min) *Enoxaparin/Lovenox 30 mg SQ daily (WT < 150 kg, CrCl > 10-29 mL/min) *Enoxaparin/Lovenox 30 mg SQ BID (WT < 150 kg, CrCl > 30 mL/min) AND/OR *Sequential Compression Device (SCD) 5 or more Highest Order ONE of the following medications: *Heparin 5000 units SQ TID (Preferred with Epidurals) *Enoxaparin/Lovenox 40 mg SQ daily (WT < 150 kg, CrCl > 30 mL/min) *Enoxaparin/Lovenox 30 mg SQ daily (WT < 150 kg, CrCl > 10-29 mL/min) *Enoxaparin/Lovenox 30 mg SQ BID (WT < 150 kg, CrCl > 30 mL/min) AND *Sequential Compression Device (SCD) Assessment and Plan - Plan seizure vs syncopal episode: Pt on po keppra. Neuro evaluated the pt. EEG normal. Pt's children also have hx of sz d/o. She was never diagnosed in the past. Neg carotid MRA, unremarkable head MRA. ECHO ordered. Neuro work up in progress. sz precautions. Will get a cardiology consult as pt has recurrent episodes of syncope throughout her life. apparently has was evaluated 3 years ago w no definitive answer from her turkey pinner. Neuro also would like her to be evaluated by cards. ? chest tightness: pt states that this is chronic for her. Not worst than normal. Pt w hx of fibromyalgia, RA and rosalio. Trop on admission neg. EKG w no ST changes, sinus rhythm. Pt denies any chest pains to me. morphine/nitro prn. ASA 81mg daily. repeat CE now. atrial fibrillation: BB resumed. not on any anticoagulation, i have started her on ASA lupus, fibromyalgia, RA: home meds resumed hypertension: home meds resumed, stable COPD: home med resumed. DVT proph: lovenox
--- NOTE | 2018-01-02 17:47 | ECG ---
Date Performed: 01/01/2018 Time Performed: 17:55:13 PTAGE: 42 years EKG: Sinus rhythm NORMAL ECG PREVIOUS TRACING : 12/26/2017 09.24 Since the previous tracing, no significant change noted DOCTOR: Emani Hester Interpretating Date/Time 01/02/2018 17:47:15
[2018-01-02 18:52] LABS: Vitamin B12 345 pg/mL (193-986)
[2018-01-02] MEDS: Morphine Inj 4 MG/ML Vial IV.PUSH PRN (19:05)
[2018-01-02] MEDS: Enoxaparin Inj 40 MG/0.4 ML Syringe SQ SCH (20:55)
[2018-01-02] MEDS: Carvedilol 12.5 MG Tablet PO SCH (20:56)
[2018-01-02] MEDS: Ciprofloxacin 400 MG/200 ML 400 MG/200 ML PIGGYBACK IV.SIG SCH (20:58)
[2018-01-02] MEDS: predniSONE 5 MG Tablet PO SCH (20:58)
[2018-01-02] MEDS: Budesonide-Formoterol 80/4.5 MCG 6.9 GM Inhaler INH SCH (21:33)
--- NOTE | 2018-01-03 07:51 | P.PNNEU ---
Subjective Active Medications: Active Medications Generic Name Dose Route Start Last Admin Trade Name Freq PRN Reason Stop Dose Admin Albuterol 1 puff 01/02/18 17:47 Ventolin Hfa Inh INH Q4H PRN SOB/WHEEZING Aspirin 81 mg 01/02/18 18:00 01/02/18 19:05 Ecotrin PO 81 mg DAILY [facility] Administration Budesonide/Formoterol Fumarate 2 puff 01/02/18 21:00 01/02/18 21:33 Symbicort 80/4.5 Mcg Inh INH 2 puff BID [facility] Administration Carvedilol 25 mg 01/02/18 21:00 01/02/18 20:56 Coreg PO 25 mg BID [facility] Administration Duloxetine HCl 30 mg 01/03/18 09:00 Cymbalta PO DAILY [facility] Enoxaparin Sodium 40 mg 01/02/18 20:00 01/02/18 20:55 Lovenox Inj SQ 40 mg DAILY [facility] Administration Sodium Chloride 1,000 mls @ 75 mls/hr 01/01/18 20:00 01/02/18 21:45 Ns Inj IV.CONT 75 mls/hr .[id number] [facility] Administration Ciprofloxacin/Dextrose 400 mg in 200 mls @ 200 mls/hr 01/02/18 20:00 20:58 Cipro 400 Mg/200 Ml Inj IV.SIG 200 mls/hr Q12H [facility] Administration Levetiracetam 500 mg 01/02/18 09:00 01/02/18 20:57 Keppra PO 500 mg BID [facility] Administration Lisinopril 20 mg 01/03/18 09:00 Prinivil PO DAILY [facility] Methotrexate 2.5 mg 01/06/18 09:00 Rheumatrex PO Q7D [facility] Morphine Sulfate 1 mg 01/02/18 17:38 01/02/18 19:05 Morphine Inj IV.PUSH 1 mg Q4H PRN Administration CHEST PAIN Nitroglycerin 0.4 mg 01/02/18 17:39 Nitrostat Sl SL Q5M PRN [facility]ST PAIN Prednisone 5 mg 01/02/18 20:00 01/02/18 20:58 Deltasone PO 5 mg DAILY [facility] Administration Tiotropium [place] 18 mcg 01/03/18 09:00 Spiriva 18 Mcg Inh INH DAILY [facility] Allergies/Adverse Reactions: Allergies Allergy/AdvReac Type Severity Reaction Status Date / Time acetaminophen Allergy Severe Itching Verified 12/26/17 08:48 clindamycin Allergy Severe Cardiac Verified 12/26/17 08:48 Arrest propoxyphene Allergy Severe Itching Verified 12/26/17 08:48 latex Allergy Intermediate RASH Verified 12/26/17 08:48 penicillin G Allergy Intermediate Anaphylaxis Verified 12/26/17 08:48 Physical Exam Vital signs: Vital Signs 01/02/18 11:24 01/02/18 16:00 01/02/18 20:00 Temperature 98.9 F 98.3 F 97.7 F Pulse Rate 58 L 70 71 Respiratory Rate 14 18 18 Blood Pressure 119/79 127/72 173/104 H Pulse Oximetry 100 100 100 01/03/18 00:00 01/03/18 03:12 Temperature 98 F 98.1 F Pulse Rate 65 57 L Respiratory Rate 16 16 Blood Pressure 113/67 103/63 Pulse Oximetry 100 99 Intake & Output 01/02/18 01/03/18 01/03/18 18:59 06:59 18:59 Intake Total 1999 / 1999 1000 / 1000 Balance 1999 1000 / 1000 Intake: IV 1999 / 1999 1000 / 1000 NS Inj 1,000 ML @ 75 mls/hr IV. 1000 / 1000 1000 / 1000 CONT .[id number] [facility] Rx#:[id number] Other: # Voids 3 Narrative: awake alert no new spell Objective Laboratory Results - last 24 hr 01/02/18 01/02/18 01/02/18 17:48 17:48 17:48 ESR 20 Total Creatine Kinase Troponin I Vitamin B12 345 TSH 1.070 Thyroxine (T4) 9.0 Beta HCG, Quant Less than 1 Rheumatoid Factor Scrn Negative Rheumatoid Factor Titer Not Reportable 01/02/18 01/02/18 17:48 17:48 ESR Total Creatine Kinase 60 Troponin I Less than 0.02 L Vitamin B12 TSH Thyroxine (T4) Beta HCG, Quant Rheumatoid Factor Scrn Rheumatoid Factor Titer Microbiology 01/01/18 20:50 Urine Culture - Preliminary Clean Catch Urine Immature growth - reincubate Review/Management - Review/Management Plan: imp mri/a/a neg uti needs rx echo and holter and cards consult pend check tele and standing bp esr nl if above all nl could dc on keppra should not drive
[2018-01-03] MEDS: Tiotropium Bromide 18 MCG/ACT Inhaler INH SCH (08:38)
[2018-01-03] MEDS: Enoxaparin Inj 40 MG/0.4 ML Syringe SQ SCH (08:38)
[2018-01-03] MEDS: Ciprofloxacin 400 MG/200 ML 400 MG/200 ML PIGGYBACK IV.SIG SCH ×2 (08:38→20:37)
[2018-01-03] MEDS: Carvedilol 12.5 MG Tablet PO SCH ×2 (08:39→20:47)
[2018-01-03] MEDS: levETIRAcetam 500 MG Tablet PO SCH ×2 (08:39→20:38)
[2018-01-03] MEDS: predniSONE 5 MG Tablet PO SCH (08:39)
[2018-01-03] MEDS: Lisinopril 20 MG Tablet PO SCH (08:39)
[2018-01-03] MEDS: Budesonide-Formoterol 80/4.5 MCG 6.9 GM Inhaler INH SCH ×2 (08:41→20:39)
--- NOTE | 2018-01-03 09:34 | P.PN ---
Subjective Interval history: Follow-up visit seizure, urinary tract infection, lupus, RA, fibromyalgia, COPD. Patient seen and examined today. Reports she is feeling a lot better. States that she has been dealing with passing out for so many years now that she did not even realize if it is a grand mal seizure. Reports that both of her children have seizure disorder. Denies pain and discomfort. Denies SOB/ dyspnea. Denies chest pain, palpitations, headaches, dizziness. Denies fevers, chills, n/v/d. Denies dysuria. Physical Exam Vital signs: Vital Signs 01/02/18 11:24 01/02/18 16:00 01/02/18 20:00 Temperature 98.9 F 98.3 F 97.7 F Pulse Rate 58 L 70 71 Respiratory Rate 14 18 18 Blood Pressure 119/79 127/72 173/104 H Pulse Oximetry 100 100 100 01/03/18 00:00 01/03/18 03:12 Temperature 98 F 98.1 F Pulse Rate 65 57 L Respiratory Rate 16 16 Blood Pressure 113/67 103/63 Pulse Oximetry 100 99 Intake & Output 01/02/18 01/03/18 01/03/18 18:59 06:59 18:59 Intake Total 1999 / 1999 1200 / 1200 Balance 2000 / 1999 1200 / 1200 Intake: IV 1999 / 1999 1200 / 1200 NS Inj 1,000 ML @ 75 mls/hr IV. 1000 / 1000 1000 / 1000 CONT .[id number] SADI Rx#:[id number] Cipro 400 MG/200 ML Inj 400 mg 200 / 200 In 200 ml @ 200 mls/hr IV.SIG Q12H SADI Rx#:[id number] Other: # Voids 3 Narrative: GENERAL: This is a well-nourished, well-developed patient, in no apparent distress. SKIN: Warm and dry HEENT: Normocephalic. Pupils equal round and reactive. Nose without bleeding. Airway patent. NECK: Trachea midline. No JVD. Supple. CARDIOVASCULAR: Regular rate and rhythm without murmurs, gallops, or rubs. RESPIRATORY: Clear to auscultation. Breath sounds equal bilaterally. No wheezes , rales, or rhonchi. GASTROINTESTINAL: Abdomen soft, non-tender, nondistended. Bowel Sounds normoactive x4. MUSCULOSKELETAL: Extremities without clubbing, cyanosis, or edema. NEUROLOGICAL: Awake and alert. Oriented to time, place, person. No focal neuro deficit. Moves all extremities. Normal speech. Results - Labs CBC & Chem 7: 01/01/18 15:15 01/01/18 15:15 Laboratory Results - last 24 hr 01/02/18 01/02/18 01/02/18 17:48 17:48 17:48 ESR 20 Total Creatine Kinase Troponin I Vitamin B12 345 TSH 1.070 Thyroxine (T4) 9.0 Beta HCG, Quant Less than 1 Rheumatoid Factor Scrn Negative Rheumatoid Factor Titer Not Reportable 01/02/18 01/02/18 17:48 17:48 ESR Total Creatine Kinase 60 Troponin I Less than 0.02 L Vitamin B12 TSH Thyroxine (T4) Beta HCG, Quant Rheumatoid Factor Scrn Rheumatoid Factor Titer Microbiology 01/01/18 20:50 Clean Catch Urine Urine Culture - Preliminary Immature growth - reincubate - Imaging Impressions Head MRA 01/02/18 00:00 CONCLUSION: 1. Unremarkable MRA examination of the head. Specifically, no evidence for significant intracranial stenosis or large vessel occlusion. Neck MRA 01/02/18 00:00 CONCLUSION: Negative MRA Carotids. Percent stenosis is calculated using the diameter of the stenotic region over the diameter of the normal distal internal carotid artery Assessment and Plan - Plan Patient is a 42-year-old female with past medical history of A. fib, lupus, fibromyalgia, RA, hypertension, COPD, lung disease resented to the emergency room with "grand mal seizure". seizure vs syncopal episode -Pt on po keppra -Neuro consulted appreciate recommendations. -EEG normal -MRA of the carotids negative, unremarkable head MRA. -Echocardiogram -Chest x-ray no focal consolidation or effusion. Heart size within normal limits. Chest pain, atypical History of fibromyalgia, RA, lupus -Patient states it is chronic secondary to her lupus. -EKG reviewed no ST elevation changes -Troponin negative -Radiology consulted appreciate recommendations. Lexiscan nuclear test to rule out underlying severe coronary artery disease. -Patient will also do tilt table test to rule out neurally mediated syncope Urinary tract infection -On Cipro -Follow-up microbiology Atrial fibrillation -Resume beta-luisana, not on any anticoagulation started on aspirin Lupus, fibromyalgia, RA -Resume home medications HTN, fairly controlled -Resume home medications COPD without exacerbation -Resume home medications DVT prop Lovenox Code Status: Full Code Discussed Condition With: Patient, nursing Discharge Planning: Plan to DC home when clinically improved, cleared by neuro, cards
[2018-01-03 09:57] LABS: Bilirubin,Urine Negative (Negative); Clarity,Urine Clear (Clear); Color,Urine Straw (Yellw/Straw); Glucose,Urine (UA) Negative (Negative); Leukocyte Esterase,Urine Trace (Negative); Mucus,Urine Few /lpf (Occasional); Nitrite,Urine Negative (Negative); Specific Gravity,Urine 1.004 (1.002-1.035); Squamous Epithelial Cell,Urine 1 /hpf (0-5)
--- NOTE | 2018-01-03 11:03 | MB ---
cc: Werner Richmond MD DATE: 01/03/2018 REASON FOR CONSULTATION: History of chest pain, chronic recurrent syncope. HISTORY OF PRESENT ILLNESS: The patient is a 42-year-old female with a history of lupus, COPD, hypertension, juvenile onset rheumatoid arthritis, seizure disorder, who was brought to the hospital after a possible seizure. The patient had witnessed tonic-clonic activity and apparently was seizing for 10-15 minutes. The patient states she initially had a seizure back in 1995. In the last several years, she has experienced multiple episodes of loss of consciousness each year often associated with either headache or some sort of discomfort. When she regains consciousness, she often has slight disorientation for a minute or 2. At times when she regains consciousness, she has diaphoresis and nausea. The patient denies any preceding palpitations, chest pain, shortness of breath. She also reports a chronic history of intermittent substernal chest "tightness" never lasting more than 5 minutes often associated with increased emotional stress. Chronically, she has" palpitations" constantly. She reports a stress test about 4 years ago in [place], which was negative. She denies pedal edema, paroxysmal nocturnal dyspnea, recent flu symptoms. PAST MEDICAL HISTORY: 1. Systemic lupus erythematosus. 2. Chronic obstructive pulmonary disease. 3. Hypertension. 4. Gallstone pancreatitis 07/2015. 5. Juvenile onset rheumatoid arthritis. 6. Seizure disorder. PAST SURGICAL HISTORY: 1. section. 2. Laparoscopic cholecystectomy. 3. Bilateral toe surgeries. CARDIAC MEDICATIONS AT HOME: 1. Carvedilol 25 mg b.i.d. 2. Lisinopril 20 mg daily. ALLERGIES: PENICILLIN, CLINDAMYCIN, LATEX, ACETAMINOPHEN, PROPOXYPHENE. FAMILY HISTORY: The patient's father from myocardial infarction at age 39. SOCIAL HISTORY: The patient denies alcohol or tobacco abuse. REVIEW OF SYSTEMS: As in the history of present illness, otherwise negative or noncontributory. She also denies abdominal pain, melena, bright red blood per rectum, fevers, wheezing. Occasionally, she experiences dyspepsia for which she takes antacids or Prevacid. PHYSICAL EXAMINATION: VITAL SIGNS: Her blood pressure 103/63 with a pulse of 57, respirations 16. GENERAL: She is a well-developed, thin, female in no acute distress. NECK: Jugular venous pressure is normal. Carotid pulses are 2+ bilaterally and without bruits. CHEST: Reveals clear lungs thompson. CARDIAC: She has a regular rhythm and rate without S3, S4, or murmur. ABDOMEN: She has a soft, nontender abdomen. Bowel sounds are present. There is no definite hepatosplenomegaly. EXTREMITIES: Reveals no clubbing, cyanosis or edema. EKG: Shows normal sinus rhythm, normal EKG. LABORATORY DATA: Hemoglobin 10.7, WBC 8.9, platelets 240. Potassium 4.4, BUN 12, creatinine 1.10, negative cardiac enzymes. Drug screen is positive for cannabinoids. IMAGING: Chest x-ray shows no acute disease. IMPRESSION: Chronic intermittent chest pain, chronic recurrent syncope in this 42-year-old female with a history of lupus, rheumatoid arthritis, seizure disorder, hypertension, chronic obstructive pulmonary disease, currently admitted with recurrent seizure. Her chest pains are overall atypical for myocardial ischemia, often precipitated by emotional stress. Electrocardiogram is normal. Cardiac enzymes are negative for myocardial infarction. There is no evidence for myocarditis or pericarditis. With her lupus, there is somewhat of an increased risk of premature coronary artery disease. She also has a family history of early myocardial infarction. With respect to her chronic recurrent syncope, many of her episodes appear to be a vasovagal mediated. With her history of lupus and fibromyalgia, she is also at increased risk of neurally mediated hypotension. Overall, I doubt she has "postural orthostatic tachycardia syndrome." Her most recent episode of loss of consciousness, prompting this admission, is clearly more consistent with seizure activity. RECOMMENDATIONS: 1. Check a Lexiscan nuclear stress test to rule out underlying severe coronary artery disease. 2. Check a tilt table test to rule out neurally mediated syncope. 3. Both of the above tests can be done as an outpatient. We will followup when testing has been completed if done here in the hospital. Will see if the tilt table test can be done today. MD TERE Christine/EDGAR , 10:38 AM , 11:02 AM JIMMY
[2018-01-03 11:15] LABS: Anti-Nuclear Antibody Screen Neg (Neg)
[2018-01-03] MEDS: Sod Chloride 0.9% Inj 1,000 ML IV.CONT SCH ×2 (13:25→20:38)
--- NOTE | 2018-01-03 13:46 | ECHRPT ---
Indication: a fib flutter CONCLUSIONS Normal left ventricular size. Wall thickness is normal. The left ventricular systolic function is low normal with an estimated ejection fraction in the rang e of 50- 55%. Mitral annular calcification is present. The pulmonary valve is not well visualized. BP: / HR: Rhythm: MEASUREMENTS (Male / Female) Normal Values Technical Quality: 2D ECHO LV Diastolic Diameter PLAX 4.3 cm 4.2 - 5.9 / 3.9 - 5.3 cm LV Systolic Diameter PLAX 3.4 cm IVS Diastolic Thickness 1.0 cm 0.6 - 1.0 / 0.6 - 0.9 cm LVPW Diastolic Thickness 0.7 cm 0.6 - 1.0 / 0.6 - 0.9 cm LV Relative Wall Thickness 0.4 RV Internal Dim ED PLAX 1.8 cm DOPPLER Mitral E Point Velocity 97.7 cm/s Mitral A Point Velocity 70.1 cm/s Mitral E to A Ratio 1.4 TR Peak Velocity 235.0 cm/s TR Peak Gradient 22.1 mmHg FINDINGS LEFT VENTRICLE Normal left ventricular size. Wall thickness is normal. The left ventricular systolic function is low normal with an estimated ejection fraction in the rang e of 50- 55%. RIGHT VENTRICLE Normal right ventricular size and systolic function. LEFT ATRIUM The left atrial size is normal. RIGHT ATRIUM The right atrial size is normal. ATRIAL SEPTUM Normal atrial septal thickness without atrial level shunting by limited color doppler interrogation. AORTA The aortic root and proximal ascending aorta are normal in size on limited imaging. MITRAL VALVE Mitral annular calcification is present. AORTIC VALVE Trileaflet aortic valve. No aortic valve stenosis or regurgitation. TRICUSPID VALVE Structurally normal tricuspid valve. No tricuspid valve stenosis or regurgitation. PULMONARY VALVE The pulmonary valve is not well visualized. VESSELS The inferior vena cava is normal in size. PERICARDIUM No pericardial effusion. Michael Novak MD, FACC (Electronically Signed) Final Date:03 January 2018 13:45
[2018-01-03] MEDS ORDERED: Regadenoson Inj 0.4 MG/5 ML Syringe IV.PUSH ONE (14:40)
--- NOTE | 2018-01-03 15:38 | NM ---
EXAM DATE: 01/03/2018 3:30 PM EDT AGE/SEX: 42 years / Female INDICATIONS:Angina. . Seizure. CLINICAL DATA: This is the patient's initial encounter. Patient reports that signs and symptoms have been present for 1 day and indicates a pain score of 0/10. MEDICAL/SURGICAL HISTORY: Lupus. Hypertension. Tubal ligation. COMPARISON: No prior exams available for comparison. DOSE: 8.8 mCi Tc 99m Myoview at rest 27.2 mCi [id number] at stress 0.4 mg Lexiscan STRESS SYMPTOMS: Weird feeling and dyspnea. EJECTION FRACTION: 64 % TECHNIQUE: The patient underwent pharmacologic stress with infusion of prescribed dose. Continuous ECG tracing was monitored during stress. Gated SPECT imaging was performed after stress and conventi onal SPECT imaging was performed at rest. The examination was performed on a SPECT/CT scanner, both attenuation and non-corrected datasets were reviewed. FINDINGS: Distribution: The maximum perfused segment at stress is in the lateral wall. Perfusion Study: The pattern of perfusion at stress is within normal limits. Gated Study: There are intact wall motion and wall thickening without hypokinetic or dyskinetic segm ents. The ejection fraction is calculated at 64%. RISK CATEGORY: Low (<1% Annual Motality Rate) CONCLUSION: 1. Unremarkable myocardial perfusion scan. Electronically signed by: Juan Wasserman MD 01/03/2018 3:36 PM EDT
--- NOTE | 2018-01-03 17:41 | P.PNADD ---
Addendum to Inpatient Note Additional information: Patient's nuclear stress test today normal. Echo normal; no pericardial disease noted. Her tilt table test was also negative. Her syncopal episodes are unlikely to be due to a severe tachy or bradyarrhythmia. Patient cleared for discharge from a cardiac standpoint.
[2018-01-03] MEDS: Morphine Inj 4 MG/ML Vial IV.PUSH PRN (20:35)
[2018-01-04] MEDS: Ciprofloxacin 400 MG/200 ML 400 MG/200 ML PIGGYBACK IV.SIG SCH (08:31)
[2018-01-04] MEDS: Tiotropium Bromide 18 MCG/ACT Inhaler INH SCH (08:32)
[2018-01-04] MEDS: Budesonide-Formoterol 80/4.5 MCG 6.9 GM Inhaler INH SCH (08:32)
[2018-01-04] MEDS: Enoxaparin Inj 40 MG/0.4 ML Syringe SQ SCH (08:32)
[2018-01-04] MEDS: Carvedilol 12.5 MG Tablet PO SCH (08:34)
[2018-01-04] MEDS: Lisinopril 20 MG Tablet PO SCH (08:35)
[2018-01-04] MEDS: levETIRAcetam 500 MG Tablet PO SCH (08:35)
[2018-01-04] MEDS: predniSONE 5 MG Tablet PO SCH (08:36)
[2018-01-04] MEDS: Morphine Inj 4 MG/ML Vial IV.PUSH PRN (08:43)
--- NOTE | 2018-01-04 09:06 | P.DS ---
Date of admission: 01/01/18 19:55 Primary care physician: No Primary Care Physician Attending physician on discharge: Luis Hunter Anticipated date of discharge: 01/04/18 Brief History from admission: Patient is a 42-year-old female with past medical history of A. fib, lupus, fibromyalgia, RA, hypertension, COPD, lung disease resented to the emergency room with what she thinks was a "grand mal seizure". She states it occurs while she was cooking/grilling out with her friend. It occurred yesterday afternoon and the last thing she remembers was holding the top of the grill where someone was flipping the food and all of a sudden she felt hot and " passed out". She does not remember what happened afterwards. She states that her children have a history of seizures but when she was never diagnosed. She wonders if all those years that she has been passing out could be related to seizures. She saw tool and equipment rental clerk in [place] about 3 years ago for her similar symptoms had had stress test but she does not know if any of them were positive but she was never told that she needed a cardiac cath. She moved here 3 years ago. Patient tells me that she experiences chest tightness on and off which is chronic for her and she has aches all over due to her fibromyalgia, nothing out of the ordinary for her prior to the syncopal episode, she never had chest pains. She has a history of uncontrolled hypertension and states that here her BP's have been the best that she has ever had. Currently she is chest pain- free. Past medical history of atrial fibrillation, lupus, fibromyalgia, RA, hypertension, COPD, Lyme disease Past surgical history: none family hx: father had an FL at age 39, mother HTN social hx: smokes cigars, smokes MJ DS: Diagnosis - Discharge Diagnosis (1) Lupus (systemic lupus erythematosus) Status: Chronic (2) Rheumatoid arthritis Status: Chronic (3) Seizures Status: Acute (4) Hypertension Status: Chronic DS: Medications - Discharge Medications Prescriptions: levetiracetam [Keppra] 500 mg PO BID #60 tab DS: Summary Hospital Course: Patient is a 42-year-old female with past medical history of A. fib, lupus, fibromyalgia, RA, hypertension, COPD, lung disease resented to the emergency room with "grand mal seizure". Neurology was consulted for the patient and she has been evaluated. Placed on Keppra 500 mg twice daily. Her EEG came back normal. MRA of the carotids were negative, unremarkable head MRA. Patient was also seen by tool and equipment rental clerk to verify that this is not a syncopal episode secondary to cardiac disease. EKG was reviewed with no ST elevation changes. Troponins were negative. Patient's nuclear stress test was normal. Echo normal; no pericardial disease noted. Her tilt table test was also negative. Cardiology states that syncopal episodes are unlikely to be secondary to severe tachycardia bradycardia arrhythmia and his cleared the patient from cardiac standpoint. Patient felt better with no reported seizure episode during hospitalization. She will need to follow-up with Dr. Palomo the neurologist and outpatient. Recommended no driving for 6 months. She will continue to take Keppra at home and her other previous home medications. Her UA was positive but cultures came back with mixed gram ewelina possible contaminants. Will DC Cipro. Patient has met maximal benefits of hospitalization. Clinically stable for discharge. - Time Spent with Patient Total time spent providing and/or coordinating discharge services: Less than 30 minutes - Quality: VTE Deep Vein Thrombosis/Pulmonary Embolism Present on Admission: No Exam Vital signs: Vital Signs 01/03/18 12:00 01/03/18 19:37 01/03/18 20:00 Temperature 98.2 F 98.2 F Pulse Rate 63 62 Respiratory Rate 20 16 Blood Pressure 140/73 124/76 Pulse Oximetry 97 100 01/03/18 23:18 01/04/18 00:00 01/04/18 00:33 Temperature 98.6 F Pulse Rate 62 57 L Respiratory Rate 16 20 Blood Pressure 102/58 L Pulse Oximetry 100 01/04/18 02:58 Temperature 98.5 F Pulse Rate 55 L Respiratory Rate 16 Blood Pressure 107/55 L Pulse Oximetry 99 Intake & Output 01/03/18 01/04/18 01/04/18 18:59 06:59 18:59 Intake Total 1200 / 1200 200 / 200 Balance 1200 / 1200 200 / 200 Intake: IV 1200 / 1200 200 / 200 NS Inj 1,000 ML @ 75 mls/hr IV. 1000 / 1000 CONT .[id number] SADI Rx#:[id number] Cipro 400 MG/200 ML Inj 400 mg 200 / 200 200 / 200 In 200 ml @ 200 mls/hr IV.SIG Q12H SADI Rx#:[id number] Other: Date of Last Bowel Movement 01/01/18 Narrative: GENERAL: This is a well-nourished, well-developed patient, in no apparent distress. SKIN: Warm and dry HEENT: Normocephalic. Pupils equal round and reactive. Nose without bleeding. Airway patent. NECK: Trachea midline. No JVD. Supple. CARDIOVASCULAR: Regular rate and rhythm without murmurs, gallops, or rubs. RESPIRATORY: Clear to auscultation. Breath sounds equal bilaterally. No wheezes , rales, or rhonchi. GASTROINTESTINAL: Abdomen soft, non-tender, nondistended. Bowel Sounds normoactive x4. MUSCULOSKELETAL: Extremities without clubbing, cyanosis, or edema. NEUROLOGICAL: Awake and alert. Oriented to time, place, person. No focal neuro deficit. Moves all extremities. Normal speech. Results Procedures completed during hospitalization: None Labs on day of discharge: Labs from last 24 hours 01/03/18 01/02/18 09:20 17:48 Urine Color Straw Urine Clarity Clear Urine pH 6.0 Ur Specific [place] 1.004 Urine Protein Negative Urine Glucose (UA) Negative Urine Ketones Negative Urine Occult Blood Moderate H Urine Nitrate Negative Urine Bilirubin Negative Urine Urobilinogen Less than 2 Ur Leukocyte Esterase Trace H Urine RBC 2 Urine WBC 2 Ur Squamous Epith Cells 1 Urine Mucus Few H Micro UA Comment Culture not ind Urine Culture Comments Culture not ind SWETA Screen Neg RPR Nonreactive - Impressions ITS Impressions Head MRI 01/01/18 00:00 CONCLUSION: 1. No acute findings. No recent infarct. Mastoid air cell disease, left greater than right. Retention cyst right maxillary sinus. Head CT 01/01/18 16:44 CONCLUSION: 1. No acute intracranial abnormalities. No significant change from November 26. Retention cyst right maxillary sinus. Chest X-Ray 01/01/18 16:47 CONCLUSION: No focal consolidation or effusion. Heart size within normal limits. Head MRA 01/02/18 00:00 CONCLUSION: 1. Unremarkable MRA examination of the head. Specifically, no evidence for significant intracranial stenosis or large vessel occlusion. Neck MRA 01/02/18 00:00 CONCLUSION: Negative MRA Carotids. Percent stenosis is calculated using the diameter of the stenotic region over the diameter of the normal distal internal carotid artery Myocardial Perfusion Scan [facility] [place] [facility] 01/03/18 00:00 CONCLUSION: 1. Unremarkable myocardial perfusion scan. Discharge Plan - Discharge Disposition Patient Disposition: Discharge Home - Discharge Condition Condition: Stable - Discharge Order Discharge Orders: Discharge Order (Routine); Ordered 01/04/18 Ordered By: Alejandro Flores Cardiology Clear for Discharge (Routine); Ordered 01/03/18 Ordered By: Werner Richmond - Physicians Team Primary Care Provider: Primary Care Chica Dhillon Attending Provider: Luis Hunter Other Providers: Brett Palomo MD ; [employer]urance ; Jung Mendez MD
[2018-01-08 09:38] LABS: DS DNA Ab (Crithidia) <1
== END 2018-01-04 13:30 | disposition home or self-care (01) ==
LOC: NEDA 16:32 → NEPC 16:32 → NEPGCP 16:32 → NEDA 22:04 → NEPGCP 22:11
PROVIDERS: ADMIT Family Medicine; ATTEND Family Medicine